=== PATIENT | female | born 1965 | race Caucasian/White ===

== ENCOUNTER → 2021-05-20 12:30 | Outpatient (CLI) | payer SELFPAY ==
--- NOTE | 2021-05-20 12:36 | CT_ITS ---
STUDY: CT Abdomen And Pelvis W/ Contrast Injection 05/20/2021 8:58 PM REASON FOR EXAM: Female, 55 years old. Technologist Notes BRITT BYERSJESE W/ MUSCLE REPAIR YEARS AGO, INTERMITTENT UMBILICAL PAIN/LUMP HERNIA TECHNIQUE: Transaxial images were obtained with oral contrast, and with Oral IV Readi-CAT and 100mL Isovue-300 intravenous contrast. Individualized dose optimization techniques were used for this CT. COMPARISON: None. FINDINGS: The visualized lung bases are unremarkable. The visualized portions of the heart are within normal limits. There are bilateral breast implants. Normal liver. Normal gallbladder and extrahepatic biliary system. Normal spleen. Normal pancreas. Normal bilateral adrenal glands. No acute findings of the right kidney. No acute findings of the left kidney. Normal visualized stomach. Normal small intestine. Stool throughout the colon. There is non-visualization of the appendix. There are multiple colonic diverticula consistent with diverticulosis. There are no acute findings of the abdominal aorta. Normal inferior vena cava. Subcentimeter mesenteric lymph nodes. The urinary bladder is distended. This can suggest urinary retention. Normal visualized uterus. Normal abdominal wall. Normal osseous structures. IMPRESSION: (NOT LISTED IN ORDER OF SIGNIFICANCE) The urinary bladder is distended. This can suggest urinary retention. Constipation. Other findings as above. Electronically Signed: Jaycob Fay MD at 21:00 EST , Service support , CT/Abdomen/Pelvis WITH Contrast
== END ==
DX: K42.9 Umbilical hernia without obstruction or gangrene (principal); R10.9 Unspecified abdominal pain
CPT/HCPCS: 74177; Q9967

== ENCOUNTER → 2022-05-03 | Outpatient (CLI) | payer SELFPAY ==
--- NOTE | 2022-05-03 16:07 | CT_ITS ---
STUDY: CT ABDOMEN AND PELVIS WITH CONTRAST REASON FOR EXAM: Female, 56 years old. Midabdominal pain for months. History of irritable bowel syndrome.. RADIATION DOSAGE (If Supplied By Facility): CTDIvol = ( 9.97 ) mGy, DLP = ( 493.15 ) mGycm TECHNIQUE: Transaxial images were obtained from the dome of the diaphragm to the symphysis pubis with oral contrast. 100 mL Isovue-300 intravenous contrast. Sagittal and coronal images were reconstructed. Individualized dose optimization techniques were used for this CT. COMPARISON: May 19, 2021. FINDINGS: The visualized lung bases are unremarkable. The visualized portions of the heart are within normal limits. Bilateral breast implants. Normal liver. Normal gallbladder and extrahepatic biliary system. Normal spleen. Normal pancreas. Normal bilateral adrenal glands. Normal right kidney. Normal left kidney. Normal visualized stomach. Normal small intestine. Sigmoid diverticulosis. Wall thickening involving the mid sigmoid colon without pericolonic inflammatory changes and probably representing diverticular disease, with wall thickening more prominent as compared to the prior study, axial image 92. The appendix is visualized and appears normal. Normal abdominal aorta. Normal inferior vena cava. Normal retroperitoneum. No intra-abdominal free air. Normal urinary bladder. The uterus is grossly normal. No adnexal mass is seen. Normal abdominal wall. Normal osseous structures. CT/Abdomen/Pelvis WITH Contrast IMPRESSION: Probable diverticular disease involving the sigmoid colon. Malignancy is a consideration. Consider gastroenterology consult. Otherwise negative exam. Electronically Signed: Hitesh Osorio MD at 6:58 EDT Reading Location ID and State: [id number] / , Service support ,
== END | disposition home or self-care (01) ==
PROVIDERS: Referring Provider Surgery; Visit Provider Surgery
DX: R10.9 Unspecified abdominal pain (principal)
CPT/HCPCS: 74177; Q9967